=== PATIENT | female | born 1950 | race Caucasian/White ===

== ENCOUNTER 2019-11-28 08:02 | Outpatient (CLI) | payer MEDICARE ==
[2019-11-28] VITALS (8 sets, daily range): BP systolic 165–184; BP diastolic 60–69
[~2019-11-28] VITALS: Ht 170.2 cm; Wt 125.9 kg
[2019-11-28] MEDS ORDERED: normal saline 500ml IV soln 500 ML IV ONE (09:00)
[2019-11-28] MEDS ORDERED: aminophylline 250mg/10ml inj. IV PRN (09:00)
[2019-11-28] MEDS ORDERED: nitroGLYCERIN 0.4mg SUBLingual tab SL PRN (09:00)
[2019-11-28] MEDS ORDERED: regadenoson 0.4mg/5ml syringe IV PRN (09:00)
== END 2019-11-28 23:59 | disposition home or self-care (01) ==
LOC: RAD 08:02
PROVIDERS: ATTEND Internal Medicine Cardiovascular Disease
DX: I10 Essential (primary) hypertension (principal); I27.20 Pulmonary hypertension, unspecified; E11.9 Type 2 diabetes mellitus without complications; R27.0 Ataxia, unspecified; E78.5 Hyperlipidemia, unspecified
CPT/HCPCS: 78452; 93017; A9500; J0280; J2785; J7040

== ENCOUNTER 2021-01-31 15:40 | Emergency (ER) | payer MEDICARE ==
[~2021-01-31] VITALS: Ht 170.2 cm; Wt 120.0 kg
[2021-01-31 15:46] VITALS: BP 170/63
[2021-01-31] MEDS ORDERED: ketorolac trometh. 30mg/ml inj. IM ONE (18:50)
== END 2021-01-31 19:05 | disposition home or self-care (01) ==
LOC: ER 15:41
DX: M25.561 Pain in right knee (principal); E11.9 Type 2 diabetes mellitus without complications; Z88.8 Allergy status to other drugs, medicaments and biological substances
CPT/HCPCS: 73564; 93971; 96372; 99284; J1885